=== PATIENT | male | born 1960 | race Caucasian/White ===

== ENCOUNTER 2025-05-01 07:51 | Day surgery (SDC) | payer OTHER, SELFPAY ==
[2025-05-01 08:14] VITALS: BMI 33.7
[2025-05-01 08:46] VITALS: BP 137/89
--- NOTE | 2025-05-01 09:10 | W.ICD.CONTRA ---
Post ICD/[employer]OR [employer]-D
-
History of AK?: No
LV Function
Left ventricular function study result?: Ejection Fraction >/= 40%
ACEI/ARB/ARNI
Patient already on ACEI/ARB/ARNI: No
Beta-Blade
Patient already on Beta Blade: No
[2025-05-01 12:09] VITALS: BP 128/88
--- NOTE | 2025-05-01 12:16 | ITS.CL.ICD ---
[employer] - ICD
Implantable Cardioverter Defibrillator
Procedure Report:
ICD GENERATOR CHANGE REPORT
Date of Procedure: May 01, 2025
Primary Care Provider: Dr Sridhar Nascimento
PROCEDURES:
1. Removal of ICD Generator, 2. ICD Implant
HISTORY:
ICD at battery depletion/replacement indices
Secondary prevention
Life expectancy > 1 year
Initial indication for implant is secondary prevention
HISTORY:
He has a history of cardiac arrest in early April 2013 treated at [facility]. extensive cardiac evaluation to determine no definite etiology. Secondary prevention [employer] ICD was placed. He subsequently has been
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
'Time-out' was called and confirmed. The patient was prepped and draped in sterile fashion. Lidocaine with epi was used for local anesthesia. An incision was made along the previous incision and the device and leads were carefully dissected from
the pocket. Hemostasis was obtained with electrocautery. The leads were from the device header and tested using an external analyzer. The pocket was liberally irrigated with antibiotic solution. Once testing (see below) showed adequate
and stable function, the leads were connected to the generator header and the leads and generator were placed within the pocket. The pocket was closed in the typical fashion.
EXISTING ICD
Leonard 1257�40Q serial #[id number], implanted April 27, 2013
IMPLANTED ICD:
Leonard [id number], serial #[id number]
EXISTING LEADS:
RV: Leonard model 7120Q/65, serial number [id number] implanted April 27, 2013
DEVICE TESTING:
Sensing: RV 12 mV,
Capture: RV 0.75 V@ 0.4 ms
Ohms: RV 430
FINAL PROGRAMMING:
Kentrell Pacing: VVI 40-110 ppm
Tachy parameters:
VF: 214 bpm, ATP x 1 while charging, Shock
VT2: 190, ATP x 3, shock
VT1: 173, monitor
CONCLUSIONS:
1. Explant of ICD at [employer]
2. Successful implant ICD generator.
3. Normal function of ICD and leads at implant testing.
RECOMMENDATIONS:
1. Observation and consideration for discharge home later today.
2. In-Office wound check in 7 - 10 days.
Copy to:
Dr Sridhar Nascimento
[2025-05-01 12:23] VITALS: BP 128/82
[2025-05-01 12:38] VITALS: BP 130/84
[2025-05-01 12:54] VITALS: BP 127/92
[2025-05-01 13:04] VITALS: BP 137/84
== END 2025-05-01 13:15 | disposition home or self-care (01) ==
LOC: CATH 07:51
PROVIDERS: ATTENDING PHYSICIAN Internal Medicine Cardiovascular Disease; FAMILY PHYSICIAN Internal Medicine
DX: Z45.02 Encounter for adjustment and management of automatic implantable cardiac defibrillator (principal); Z86.74 Personal history of sudden cardiac arrest; I47.20 Ventricular tachycardia, unspecified; Z79.82 Long term (current) use of aspirin; Z79.899 Other long term (current) drug therapy; I10 Essential (primary) hypertension; I45.10 Unspecified right bundle-branch block; E78.5 Hyperlipidemia, unspecified
CPT/HCPCS: 33262; C1722